=== PATIENT | male | born 1965 | race Caucasian/White ===

== ENCOUNTER → 2019-07-17 | Outpatient (CLI) | payer OTHER | LOC: CAT 13:36 | DX: Z13.6 Encounter for screening for cardiovascular disorders (principal); E78.00 Pure hypercholesterolemia, unspecified; I25.10 Atherosclerotic heart disease of native coronary artery without angina pectoris ==

== ENCOUNTER 2019-10-06 11:17 | Day surgery (SDC) | payer BC, OTHER ==
[~2019-10-06] VITALS: Ht 180.3 cm; Wt 96.3 kg
[~2019-10-06 11:17] MED LIST: ALKA-SELTZER P1 EAC6 PO; AMLODIPINE-BEN1 EACH PO; ASPIR-LOW81 MG PO; IBUPROFEN 600600 M1 PO; ROSUVASTATIN CA10 MG PO
[2019-10-06 13:37] VITALS: BP 172/86
--- NOTE | 2019-10-07 12:11 | O ---
[address] [address] OPERATIVE REPORT Name: DAMEON JAMISON Room #: 150-2 [facility]#: [id number] Admission: 10/06/19 Attend Phys: James Cardenas MD Discharge: Date of : 63 Report #: [id number] THIS REPORT FOR: //name// CC: Santiago Cardenas DATE OF SERVICE: 10/06/2019 SERVICE: Orthopedics. FACILITY: [facility]. SURGEON: James Cardenas MD REFINED SYRUP OPERATOR: Courtney Woods NP. INDICATION FOR REFINED SYRUP OPERATOR: Extremity positioning, suture management, arthroscope management assistance with capsular repair and the cam osteoplasty. PREOPERATIVE DIAGNOSES: 1. Left hip pain. 2. Left hip impingement syndrome. 3. Left hip labral tear. POSTOPERATIVE DIAGNOSES: 1. Left hip pain. 2. Left hip impingement syndrome. 3. Left hip labral tear. 4. Left hip chondromalacia. PROCEDURES: 1. Left hip arthroscopic Cam osteochondroplasty. 2. Left hip arthroscopic acetabuloplasty, labral debridement and chondroplasty. COMPLICATIONS: None. DRAINS: None. SPECIMENS: None. ANESTHESIA: General with regional. FINDINGS: 1. Severely macerated irreparable labral tear with chondral labral junction disruption and area of full thickness acetabular cartilage detachment of the anterior labrum secondary to the cam impingement. [address] [address] OPERATIVE REPORT Name: DAMEON JAMISON Room #: 150-2 [facility]#: [id number] Admission: 10/06/19 Attend Phys: James Cardenas MD Discharge: Date of : 63 Report #: [id number] 2. Calcified labrum with significant anterior impingement lesion, treated with a limited acetabuloplasty in this location. Note that no lateral rim resection was performed because he has lateral under coverage. 3. Very large cam deformity. Maximum alpha angle of approximately 80 degrees. HISTORY: The patient is a 54-year-old gentleman who has been a competitive semi-professional structural engineer for many years. He has significant pain now with his activities that were initially with softball and running specifically and then has progressed to even similar activities. We had a long discussion after reviewing his x-rays, MRI and history and physical examination in detail. He had seen another physician in consultation who recommended against arthroplasty. The MRI showed well maintained articular joint surfaces. Other than some perhaps anterior chondral injury, there is an abnormality of the lateral acetabulum and he had an underlying diagnosis of some mild lateral dysplasia. We had discussion about treatment options. Ultimately, he went home and thought about it and then returned and then decided he would like to proceed with definitive surgical treatment. We discussed that he may not have adequate relief and still may have to have arthroplasty and he was in agreement with this approach. The preoperative imaging showed increased alpha angle of approximately 80 degrees, Ton[place] grade of 1 and well maintained joint spaces without any signs of osteoarthritis or significant degenerative chondrosis. Risks, benefits, alternatives and indications for surgery were discussed with him in detail. Risks include but not limited to pain, bleeding, infection, injury to nerves or blood vessels, persistent pain despite surgical intervention, failure of any repairs, progression of preexisting chondral injury, stiffness, need for further surgery as well as complications related to anesthesia such as stroke, heart attack, pulmonary complications, thromboembolic disease and . Despite these risks, he wished to proceed. PROCEDURE IN DETAIL: After left lower extremity was correctly identified in preoperative holding as operative extremity, the patient underwent placement of single shot regional nerve block. He was then taken to the operating room where general anesthesia was induced without complication. He was padded appropriately. Prophylactic antibiotics were administered at appropriate time. Left lower extremity was then mapped out under fluoroscopy to identify the extent of the cam deformity. This showed maximal alpha angle of approximately 80 degrees and a very large cam deformity that extended from the 0 degree position to the 90-degree position. Left hip was then prepped and draped in standard sterile fashion. Time-out procedure was performed. After left leg was prepped and draped in standard sterile fashion, time-out procedure was performed. Traction was applied to the left lower extremity. Standard anterolateral viewing portal was established followed by anterior medial working portal. He was noted upon placement of the scope into the hip to have a macerated detached anterior labrum as well as a calcified labrum more laterally. I performed a transverse capsulotomy, I eliminated some of the [address] [address] OPERATIVE REPORT Name: SHAHEENDAMEON J Room #: 150-2 [facility] M..#: [id number] Admission: 10/06/19 Attend Phys: James Cardenas MD Discharge: Date of : 63 Report #: [id number] synovitis with a shaver. The synovitis will be indication for the CPM usage postoperatively to minimize scarring and stiffness. This is a known cause for reoperation in this patient population. The shaver was used to perform a debridement of the macerated labrum which was irreparable. I did have to use the arthroscopic biter to debride the loose detached anterior acetabular cartilage to a stable perimeter. This was in the location of the macerated labrum as well as a focal area of focal over coverage anteriorly. The bur was used to resect the anterior over coverage and the prominent anterior column bone on the acetabulum thereby completing acetabuloplasty after the labral debridement was complete. The articular cartilage within the dome was healthy as was the femoral head cartilage. After the debridement was completed, I turned attention peripherally. The hip was flexed and the cam deformity was visualized. It was quite large prominent and dense. I used a bur to resect the cam deformity, removed the instruments, brought C-arm in, assessed the resection, identified some additional bone distally, placed the instruments back in the hip, completed the cam osteoplasty and then reexamined with x-ray. At this point, the cam osteoplasty appeared to be satisfactory. I placed the instruments back into the hip. I lavaged the bony debris out and then closed the T-shaped capsulotomy with a total of four #2 Vicryl sutures. Instruments were removed. Portal sites were closed. Sterile dressing was applied. The patient was awakened from anesthesia and taken to recovery room in stable condition. No complications. All counts were recorded as correct. <ELECTRONICALLY SIGNED> By: James Cardenas MD 10/07/19 1211 [id number] James Cardenas MD /nt
== END 2019-10-06 17:15 | disposition home or self-care (01) ==
LOC: TBA 11:17 → OR 11:17 → TBA 11:18 → OR 11:32
DX: M25.552 Pain in left hip (principal); M94.252 Chondromalacia, left hip; S73.102A Unspecified sprain of left hip, initial encounter; M16.12 Unilateral primary osteoarthritis, left hip; M25.852 Other specified joint disorders, left hip; I10 Essential (primary) hypertension; E78.5 Hyperlipidemia, unspecified; Z98.890 Other specified postprocedural states; Z79.899 Other long term (current) drug therapy; Z90.49 Acquired absence of other specified parts of digestive tract; Z79.82 Long term (current) use of aspirin; X58.XXXA Exposure to other specified factors, initial encounter; Y93.89 Activity, other specified; Y92.89 Other specified places as the place of occurrence of the external cause; Y99.8 Other external cause status
CPT/HCPCS: 50010; 50101; 50386; 51320; 51538; 52001; 52282; 52304; 55430; 56524; 56527; 57092; 57103; 62110; 62900; 65060; 70005

== ENCOUNTER → 2021-03-10 | Outpatient (CLI) | payer BC, OTHER | LOC: SJCVCIMAG 02-06 07:48 | PROVIDERS: ATTEND Internal Medicine Cardiovascular Disease | DX: I08.1 Rheumatic disorders of both mitral and tricuspid valves (principal); I10 Essential (primary) hypertension; I25.10 Atherosclerotic heart disease of native coronary artery without angina pectoris ==

== ENCOUNTER → 2021-03-29 | Outpatient (CLI) | payer OTHER | LOC: RAD 14:19 | PROVIDERS: ATTEND Nurse Practitioner | DX: M89.8X6 Other specified disorders of bone, lower leg (principal); M79.604 Pain in right leg ==